=== PATIENT | female | born 1955 ===

== ENCOUNTER → 2025-05-30 14:16 | Outpatient (REF) | payer MEDICARE, OTHER, SELFPAY | LOC: REG 14:16 | PROVIDERS: ATTENDING PHYSICIAN Internal Medicine Geriatric Medicine; FAMILY PHYSICIAN Student in an Organized Health Care Education/Training Program | DX: M06.4 Inflammatory polyarthropathy (principal) | CPT/HCPCS: 73130; 73630 ==